=== PATIENT | male | born 2000 | race African-American/Black ===

== ENCOUNTER 2025-07-31 17:53 | Emergency (ER) | payer SELFPAY ==
[~2025-07-31] VITALS: Ht 185.4 cm; Wt 100.0 kg
[2025-07-31 18:00] VITALS: TEMP 37; O2SAT 98
[2025-07-31 21:29] VITALS: TEMP 98.6
[2025-07-31] MEDS: ACETAMINOPHEN 325MG TABLET PO ONE (21:29)
[2025-07-31] MEDS ORDERED: CEPH500T MT (22:42)
[2025-07-31] MEDS: LIDOCAINE HCL 1% 20ML VIAL INFIL ONE (22:52)
[2025-07-31 22:57] VITALS: BP 126/75; PULSE 67; RESP 16; O2SAT 98
[2025-07-31] MEDS: BACITRACIN ZINC OINT UDPKT TOP ONE (22:57)
== END 2025-07-31 23:00 | disposition home or self-care (01) ==
LOC: ER 17:53
DX: S61.012A Laceration without foreign body of left thumb without damage to nail, initial encounter (principal); W25.XXXA Contact with sharp glass, initial encounter; Y93.89 Activity, other specified; Y92.89 Other specified places as the place of occurrence of the external cause; Y99.9 Unspecified external cause status
CPT/HCPCS: 73120; 12001; 99283; Z7610